=== PATIENT | male | born 1995 ===

== ENCOUNTER 2023-11-22 16:26 | Emergency (ER) | payer MEDICAID ==
[~2023-11-22] VITALS: Ht 165.1 cm; Wt 65.9 kg
[2023-11-22 16:28] VITALS: BP 124/65; PULSE 94; RESP 18; TEMP 98.6; O2SAT 99
[2023-11-22] MEDS ORDERED: ARIP5TAB37 PO (16:38)
[2023-11-22] MEDS ORDERED: FLUO-418 PO (16:38)
[2023-11-22] MEDS: KETOROLAC TROMETHAMINE 30 MG/ML VIAL IVP ONE (17:07)
[2023-11-22] MEDS: ONDANSETRON HCL 4 MG/2 ML VIAL IVP ONE (17:07)
[2023-11-22] MEDS: HYDROmorphone HCL 2 MG/ML SYRINGE IVP ONE (17:08)
[2023-11-22] MEDS ORDERED: HYDR50CA7 PO (18:21)
[2023-11-22] MEDS ORDERED: BUPR-514 PO (18:21)
[2023-11-22] MEDS ORDERED: TRAZ-252 PO (18:21)
[2023-11-22] MEDS ORDERED: OXYC-38 PO (19:51)
[2023-11-22] MEDS ORDERED: METH4TAB3 PO (19:51)
[2023-11-22] MEDS: DEXAMETHASONE SOD PHOS 4 MG/ML 5 ML VIAL IVP ONE (19:57)
== END 2023-11-22 20:26 | disposition home or self-care (01) ==
LOC: EMS 16:26
DX: M51.16 Intervertebral disc disorders with radiculopathy, lumbar region (principal); F17.210 Nicotine dependence, cigarettes, uncomplicated; F12.90 Cannabis use, unspecified, uncomplicated; Z88.8 Allergy status to other drugs, medicaments and biological substances
CPT/HCPCS: 99285; 72148; 96374; 96375; J1100; J1170; J1885; J2405